=== PATIENT | female | born 1980 | race Caucasian/White ===

== ENCOUNTER → 2021-07-19 10:53 | Outpatient (CLI) | payer OTHER, MEDICAID, SELFPAY ==
[2021-07-21 11:25] LABS: Candida species Negative (Negative); Gardnerella vaginalis Negative (Negative); Trichomoas vaginalis Negative (Negative)
== END ==
PROVIDERS: PCP Physician Assistant Medical; Visit Provider Physician Assistant
DX: N76.0 Acute vaginitis (principal)
CPT/HCPCS: 81002; 87086; 87480; 87510; 87660

== ENCOUNTER → 2022-05-09 15:45 | Outpatient (CLI) | payer OTHER, MEDICAID, SELFPAY ==
[2022-05-15 17:11] LABS: Fecal Immunochemical Test Negative (Negative)
== END ==
PROVIDERS: PCP Physician Assistant; Referring Provider Physician Assistant; Visit Provider Physician Assistant
DX: R19.5 Other fecal abnormalities (principal)
CPT/HCPCS: 82274

== ENCOUNTER → 2022-05-11 11:59 | Outpatient (CLI) | payer OTHER, MEDICAID, SELFPAY ==
[2022-05-11 19:53] LABS: Add Manual Diff / Slide Review NO; Basophils Absolute Auto 0 /uL (0-100); Basophils Percent Auto 0.6 % (0-2); Eosinophils Absolute Auto 100 /uL (0-450); Hemoglobin 13.3 g/dL (12.0-16.0); Lymphocytes Absolute Auto 1900 /uL (1100-4500); Lymphocytes Percent Auto 30.2 % (25-40); Mean Corpuscular HGB Conc 34.1 % (30-36); Mean Corpuscular Hemoglobin 30.5 PG (26-34); Mean Corpuscular Volume 89.4 fL (80-100); Monocytes Absolute Auto 300 /uL (0-900); Monocytes Percent Auto 5.2 % (3-14); Neutrophils Absolute Auto 3800 /uL (1500-7000); Platelet Count 195 X10^3/uL (150-400); Red Blood Cell Count 4.37 X10^6/uL (4.0-5.2); Red Cell Distribution Width 13.1 % (11.6-14.8); White Blood Cell Count 6.2 X10^3/uL (4.5-11.0)
[2022-05-11 20:03] LABS: Alanine Aminotransferase 17 IU/L (<35); Albumin 4.3 g/dL (3.5-5.0); Albumin Globulin Ratio 1.6 (1.0-2.8); Alkaline Phosphatase 44 U/L (38-126); Aspartate Aminotransferase 21 IU/L (14-36); BUN Creatinine Ratio 24.2 (6-22); Bilirubin Total 0.5 mg/dL (0.2-1.3); Blood Urea Nitrogen 15 mg/dL (7-17); Calcium 9.2 mg/dL (8.4-10.2); Carbon Dioxide 27 mmol/L (22-32); Chloride 102 mmol/L (98-107); Estimated Glomerular Filt Rate > 60 mL/min (>60); Globulin 2.7 g/dL (1.7-4.1); Glucose 111 mg/dL (70-100); HEMOLYSIS < 15 (0-50); Potassium 3.9 mmol/L (3.4-5.1); Sodium 138 mmol/L (137-145)
[2022-05-11 20:26] LABS: Hemoglobin A1C% w Est Avg Glu 5.2 % (4.0-6.0)
[2022-05-11 20:47] LABS: Vitamin B12 379 pg/mL (239-931)
== END ==
PROVIDERS: PCP Physician Assistant; Visit Provider Family Medicine
DX: G62.9 Polyneuropathy, unspecified (principal)
CPT/HCPCS: 80053; 82607; 83036; 85025

== ENCOUNTER → 2022-07-12 11:00 | Outpatient (CLI) | payer OTHER, MEDICAID, SELFPAY | PROVIDERS: PCP Physician Assistant; Visit Provider Physician Assistant | DX: N89.8 Other specified noninflammatory disorders of vagina (principal); Z11.3 Encounter for screening for infections with a predominantly sexual mode of transmission | CPT/HCPCS: 87491; 87591; 87661; 87798; 87801 ==

== ENCOUNTER → 2022-08-16 15:14 | Outpatient (CLI) | payer OTHER, MEDICAID, SELFPAY ==
[2022-08-16 23:08] LABS: Adenovirus F 40/41 Detected (Not Detect); Campylobacter Not Detected (Not Detect); Clostridium difficile toxin AB Not Detected (Not Detect); Cryptosporidium Not Detected (Not Detect); Cyclospora cayetanensis Not Detected (Not Detect); Entamoeba histolytica Not Detected (Not Detect); Enteroaggregative E.coli Not Detected (Not Detect); Enteropathogenic E.coli Not Detected (Not Detect); Enterotoxigenic E.coli It/st Not Detected (Not Detect); Giardia lamblia Not Detected (Not Detect); Plesiomonsa shigelloides Not Detected (Not Detect); Salmonella Not Detected (Not Detect); Shiga-like toxin-prod E.coli Not Detected (Not Detect); Shigella/Enteroinvasive E.coli Not Detected (Not Detect); Vibrio Not Detected (Not Detect); Vibrio cholerae Not Detected (Not Detect); Yersinia enterocolitica Not Detected (Not Detect)
[2022-08-16 23:09] LABS: Astrovirus Not Detected (Not Detect); Norovirus GI/GII Not Detected (Not Detect); Rotavirus A Not Detected (Not Detect); Sapovirus Not Detected (Not Detect)
== END ==
PROVIDERS: PCP Physician Assistant; Visit Provider Physician Assistant
DX: R19.5 Other fecal abnormalities (principal)
CPT/HCPCS: 87507

== ENCOUNTER → 2022-08-23 14:10 | Outpatient (CLI) | payer OTHER, MEDICAID, SELFPAY ==
[2022-08-27 17:00] LABS: Fecal Immunochemical Test Negative (Negative)
[2022-08-28 12:36] LABS: Calprotectin, Stool 20 ug/g (0-120)
[2022-08-31 07:09] LABS: Lactoferrin, Fecal Quant <1.00 ug/mL(g) (0.00-7.24)
== END ==
PROVIDERS: PCP Physician Assistant; Visit Provider Physician Assistant
DX: R19.5 Other fecal abnormalities (principal)
CPT/HCPCS: 82274; 83631; 83993; 87177

== ENCOUNTER → 2022-08-30 08:15 | Outpatient (CLI) | payer OTHER, MEDICAID, SELFPAY ==
[2022-08-30 20:14] LABS: Cholesterol 161 mg/dL (140-199); HDL Cholesterol 58 mg/dL (40-60); LDL Cholesterol Calculated 89 mg/dL (<100); Triglycerides 71 mg/dL (35-150)
[2022-09-01 21:04] LABS: Deamidated Gliadin Ab IgA 3 units (0-19); Deamidated Gliadin Ab IgG 2 units (0-19); Immunoglobulin A,Qn 272 mg/dL (87-352); t-Transglutaminase IgA <2 U/mL (0-3)
[2022-09-03 14:01] LABS: Interpretation Negative (Negative)
== END ==
PROVIDERS: PCP Physician Assistant; Visit Provider Physician Assistant
DX: R19.5 Other fecal abnormalities (principal)
CPT/HCPCS: 80061; 82784; 83013; 83516

== ENCOUNTER → 2022-10-15 12:37 | Outpatient (CLI) | payer OTHER, MEDICAID, SELFPAY ==
--- NOTE | 2022-10-15 12:38 | DI.MG.S_ITS ---
BILATERAL DIGITAL SCREENING MAMMOGRAM 3D/2D WITH CAD: 10/15/2022 CLINICAL: Baseline exam. Routine screening. No prior exams were available for comparison. Both breasts are extremely dense, which lowers the sensitivity of mammography (category d />75% glandular tissue). Current study was also evaluated with a Computer Aided Detection (CAD) system. No significant masses, calcifications, or other findings are seen in either breast. IMPRESSION: NEGATIVE There is no mammographic evidence of malignancy. A 1 year screening mammogram is recommended. Based on Tyrer-Cuzick model (a risk assessment model), the patient's lifetime risk is 22.0% and her 10 year risk is 4.0%. If a patient has an elevated risk, a more comprehensive evaluation should be considered and/or a referral to a genetic counselor. The [place] [employer], [employer], and NCCN Guidelines advise the consideration of Breast MRI as an adjunct to screening mammography in patients whose Lifetime risk to develop breast cancer is 20% or higher. This exam was interpreted at Station ID: [id number]. NOTE: For mammograms, a report in lay terms will be sent to the patient. Approximately 15% of breast malignancies will not be visualized mammographically. In the management of a palpable breast mass, a negative mammogram must not discourage biopsy of a clinically suspicious lesion. Electronically Signed By: Tisha johnson/brodie:10/15/2022 15:41:42 letter sent: Normal Exam ACR BI-RADS Category 1: Negative [id number]
== END ==
PROVIDERS: Family Provider Physician Assistant; PCP Physician Assistant; Referring Provider Physician Assistant; Visit Provider Physician Assistant
DX: Z12.31 Encounter for screening mammogram for malignant neoplasm of breast (principal)
CPT/HCPCS: 77063; 77067

== ENCOUNTER 2023-01-17 10:30 | Outpatient (RCR) | payer OTHER, SELFPAY ==
--- NOTE | 2022-11-08 19:06 | PT.OIE ---
Current Diagnoses Separation of muscle (nontraumatic), unspecified site (11/08/22) Muscle weakness (generalized) (11/08/22) Other specified disorders of muscle (11/08/22) Fecal urgency (11/08/22) Past Medical History (Last Updated 10/23/22 @ 18:00 by Priscilla Bang PA-C) Abnormal Pap smear of cervix Acute vaginitis Arthritis of left knee ASCUS with positive high risk HPV cervical (~01/18/20) Atypical nevi Candidiasis of genitalia Cellulitis of right middle finger Chest tightness Chronic maxillary sinusitis Costochondritis, acute Cough Crepitus of joint of right knee Enterobiasis Face lesion Health maintenance examination Keratosis pilaris LGSIL Pap smear of vagina Mastitis, left, acute Neoplasm of unspecified behavior of bone, soft tissue, and skin Other viral warts Popping of left temporomandibular joint on opening of jaw Pyogenic granuloma Screen for STD (sexually transmitted disease) Screening for breast cancer Screening for cervical cancer Screening for colon cancer Screening for HPV (human papillomavirus) Skin sensation disturbance Soft corn Vaginal delivery Vaginal discharge Well woman exam Past Surgical History (Last Updated 01/14/20 @ 13:51 by Evette Hunter MD) H/O colposcopy with cervical biopsy Visit Care Team Role Provider Type Jaja Dixon MD Family Provider Physician Specialty: Gynecology ENGINEERING MANAGER Obstetrics Address: [address] [place] [address], [id number] Email: [email or web address] Sophia Willams PA-C Attending Provider [employer] Primary Care Provider Referring Provider Specialty: Medical Address: [address] [place] [address], [id number] Email: [email or web address] Physical Therapy Initial Evaluation PT-OP-A Visit Information Start: 11/06/22 19:22 Freq: Status: Active Protocol: Document 11/08/22 11:25 LRN (Rec: 11/08/22 12:23 LRN [id number]) Out-Patient Physical Therapy Visit Information Visit Information Visit Type Initial Evaluation Visit Start Time 11:25 Visit Stop Time 12:17 Total Visit Minutes 52 Visit Number 06/01 Evaluation Information Evaluation Date 11/08/22 Precautions Precautions Episiotomy was during 2017 childbirth in same area as cyst removal in 2002. Recent onset of R neck/upper back/ shoulder pain, history back pain PT-OP-B Current Condition Start: 11/06/22 19:22 Freq: Status: Active Protocol: Document 11/08/22 11:25 LRN (Rec: 11/08/22 12:23 LRN [id number]) Current Condition History of Current Condition Onset Date 11/2017 Current Complaints Bulging in PF with pushing and bowel movements. History of Current Condition Pt lives on [facility]. Pt states the PF feels out of place and feels like it is bulging when having bowel movement or lifting something heavy since after her 2nd childbirth. Seeing Job Order Clerk for her BM problems and will have a colonoscopy 11/12/22. Developmental History Developmental History Two childbirths: 07/2015 and births with episotomy on 2nd . Vaginal delivery. First had 6 hrs of pushing. 2nd had episotomy due to baby heart rate going down. Ob Scrub Tech did her first episotomy at that time. Has been doing PT a few weeks on [facility], up until 2.5 weeks ago, for R shoulder/neck /arm pain, but reinjured it a few days ago. Treatment Goals Patient/Caregiver Goals Pt goal is to not want to feel the bulging or worsening of bulging with bowel movements, and eliminate BM issues as much as she can. Personal Factors Other Personal Factors That May Effect Pt lives on [facility] and Therapy/Recovery is financially hindered in therapy visits. Recent onset of R neck/upper back/shoulder pain, history back pain, episiotomy 07/19/2017, cyst removed in same location of episiotomy 2002. PT-OP-C Subjective Start: 11/06/22 19:22 Freq: Status: Active Protocol: Document 11/08/22 11:25 LRN (Rec: 11/08/22 12:23 LRN [id number]) Patient Questionnaires Pelvic Pain and Urgency/Frequency Patient Symptom Scale Pelvic Pain Score 4 PT-OP-I Pelvic Floor Start: 11/06/22 19:22 Freq: Status: Active Protocol: Document 11/08/22 11:25 LRN (Rec: 11/08/22 12:23 LRN [id number]) Pelvic Floor Assessment Bowel Bowel Surgery No Bowel Symptoms Constipation Other Bowel Symptoms Soft stool problem in the past 8 months, difficulty passing stool for years having to use warm water in anal area. Now soft stool discomfort passing and more frequent (3 times at night). Starting with the 1st had problems pushing the stool out, but it wasn't hard stool. Bowel Movement Frequency Several at nighttime Pelvic Clock Pelvic Clock Other Appears to have loose tissue in region of rectum. Prolapse Cystocele Grade 2 SEMG (uV) Baseline 3.1 Quick Contraction 6.7 10 Second Contraction 7.4 Recruitment Pattern Good Relaxation Fair Holding Fair Stability of Hold Fair SEMG Stability of Rest Fair Contraction Ability Voluntary Contraction Moderate Manual Muscle Testing Left 0 Manual Muscle Testing Right 0 Manual Muscle Testing Anterior 3 Manual Muscle Testing Posterior 3 Muscle Endurance (Seconds) 5 Number of Quick Contractions In 10 10 Seconds PT-OP-J Posture/Palpation/Skin Start: 11/06/22 19:22 Freq: Status: Active Protocol: Document 11/08/22 11:25 LRN (Rec: 11/08/22 18:14 LRN [id number]) Posture Evaluation Position Standing T-Spine Posture Flattened L-Spine Posture Increased Lordosis Pelvis Posture Anteriorly Tilted Weight Distribution Balanced Palpation Assessment Location Abdomen-DR Palpation Location Abdomen - DR Palpation Details Above umbilicus: 1-2 above is 1.5 finger widths, 3-4 above is 2.25 finger widths Below umibilicus: 1-2: below is 1.5 finger widths. PT-OP-K Range of Motion Start: 11/06/22 19:22 Freq: Status: Active Protocol: Document 11/08/22 11:25 LRN (Rec: 11/08/22 18:14 LRN [id number]) Lumbar Spine Range of Motion Lumbar Spine Active Degrees Testing Position Standing Flexion 100 Extension 20 Rotation Left 45 Rotation Right 40 Lateral Flexion Left 12 Lateral Flexion Right 12 Hip Goniometric Range of Motion Hip Right Passive Testing Position Supine Internal Rotation 40 External Rotation 75 Left Passive Internal Rotation 35 External Rotation 75 PT-OP-M Strength Start: 11/06/22 19:22 Freq: Status: Active Protocol: Document 11/08/22 11:25 LRN (Rec: 11/08/22 18:14 LRN [id number]) Trunk Strength Trunk Manual Muscle Testing Core Stabilization Pt is not able to maintain core stability with MMT of hip . Hip Strength Hip Manual Muscle Testing Right Flexion (L2) 5 Normal Extension (S1) 5 Normal Abduction 5 Normal Adduction 5 Normal Left Flexion (L2) 5 Normal Extension (S1) 5 Normal Abduction 5 Normal Adduction 5 Normal PT-OP-Q Treatments Start: 11/06/22 19:22 Freq: Status: Active Protocol: Document 11/08/22 11:25 LRN (Rec: 11/08/22 12:23 LRN [id number]) Self-Care/Home Management Treatment Education Patient Education Home Exercise Program Other Education Discussed results of evaluation, goals, and plan of care (POC). Pt agreeable to goals and POC. Pt educated in use of Bladder Diary and I/S in tracking for 1 week. Discussed use of 2 different diaries for tracking of bladder. Activities Self-Care/Home Management Activities Issued & reviewed HEP: Guillermo ex's and discussed exercise of Quick Flicks, Long Holds. PT-OP-T Assessment and Plan Start: 11/06/22 19:22 Freq: Status: Active Protocol: Document 11/08/22 11:25 LRN (Rec: 11/08/22 12:23 LRN [id number]) Physical Therapy Assessment Rehab Potential Rehabilitation Potential Good Evaluation Complexity Number of Personal Factors/Comorbidities 0 Impairments Impairments Activity Tolerance Goals Three Impairment Poor core stability Impairment Not able to maintain core stability with MMT of LE's and poor abdominal care of Short Term Goal (STG) Pt will be educated in deep core strengthening (TA & obliques) with coordination of proper breath work and improve posture or able to correct increased lordosis on command. STG Duration 01/07/23 Snf Goal (LTG) Pt will be able to demonstrate a stable core with MMT of hip . LTG Duration 03/08/23 Two Impairment Bulge feeling in PF Impairment PF Bulge with squat and bowel movements (BMs). Short Term Goal (STG) Pt will understand the role of constipation & intra abdominal pressure changes with transfers/ADLS and body mechanics. STG Duration 01/07/23 Steam And Power Supervisor Goal (LTG) Pt will note reduced bulging or worsening of bulging with bowel movements and squatting. LTG Duration 03/08/23 One Impairment Pt lacks appropriate self care HEP Short Term Goal (STG) Pt will be placed on a self longterm program to progress towards elimination or decrease BM frequency issues ( self abdominal massage). STG Duration 01/07/23 Steam And Power Supervisor Goal (LTG) Pt will be able to manage symptoms (lower abdominal pain and PF bulge) with an independent HEP of PF strengthening ex's to include core & hip ROM and strengthening. LTG Duration 03/08/23 Assessment Summary Assessment The pt is a 42 yo female who presents with PF pain of lower abdominal discomfort and bowel dysfunction of increased frequency. She has mostly a normal resting tone, some weakness with quick and long hold contractions with most of the weakness in the lateral payne. The pt appeared to have increased palpable tissue in the 6 O'clock region of the PF clock, that might indicate she has a possible rectocele, although not visibly present today. The pt has a palpable Diastasis Rectus that appears to be limiting her core stability and also a ectomorphic body type with abdominal soft tissue tightness that may be restricting proper bowel function. The pt would benefit from multiple manual skilled physical therapy treatments as well as treatment focusing on pt education, strengthening, mobility exercises and HEP, to work towards achieving the above stated goals, but because of her reported insurance limits and difficulty attending therapy from [facility], it was agreed to primarily treat the patient with infrequent visits with as few treatments as possible and more focus on self care. The pt is expected to progress slowly on this type of program. Physical Therapy Plan Frequency and Duration Frequency of Treatment Occasional Plan of Care Start Date 11/08/22 Plan of Care End Date 03/08/23 Therapeutic Interventions Therapeutic Interventions Home Exercise Program,Joint Mobilizations,Manual Therapy, Neuromuscular Re-education, Patient/Caregiver Education, Self-Care/Home Management,Soft Tissue Mobilization,Taping, Therapeutic Activities, Therapeutic Exercises Modalities Biofeedback,Cold Pack/Ice Massage,Electric Stimulation, Hot Packs Next Visit Focus/Plan Next Note Type Treatment Note Next Visit Plan Up to 6 visits for PF/bowel care rehabilitation. Review bladder diary and make recommendations to fluid/food intake. Education in core/canister pressures and strategies to decrease PF pressures with coughing, and discuss use of squatty potty and self care methods for having BM's without valsa maneuver. Education in PF strengthening with ADLS/transfers. Exer: Kegels in abscence of substitute muscles, Fig 4 stretches, hamstring/LE neural stretch, trunk rot & R SB stretch. Strengthening of core & hip L AB & veda IR. Biofeedback when pt able to perform a contraction Quick Flick and Long Hold muscles. PF Education, massage, mobility ex?s, stabilization ex?s.
--- NOTE | 2022-11-08 19:07 | PT.OPPOC ---
Physical, Occupational & Speech Therapy At [facility] Current Diagnoses Separation of muscle (nontraumatic), unspecified site (11/08/22) Muscle weakness (generalized) (11/08/22) Other specified disorders of muscle (11/08/22) Fecal urgency (11/08/22) Visit Care Team Role Provider Type Jaja Dixon MD Family Provider Physician Specialty: Gynecology JEWEL HOLE FINISH OPENER Obstetrics Address: [address] [place] [address], [id number] Email: [email or web address] Sophia Willams PA-C Attending Provider Advanced Art Glass Setter Primary Care Provider Referring Provider Specialty: Medical Address: [address] [place] [address], [address] Email: [email or web address] Plan Of Care PT-OP-T Assessment and Plan Start: 11/06/22 19:22 Freq: Status: Active Protocol: Document 11/08/22 11:25 LRN (Rec: 11/08/22 12:23 LRN [id number]) Physical Therapy Assessment Rehab Potential Rehabilitation Potential Good Evaluation Complexity Number of Personal Factors/Comorbidities 0 Impairments Impairments Activity Tolerance Goals Three Impairment Poor core stability Impairment Not able to maintain core stability with MMT of LE's and poor abdominal care of Short Term Goal (STG) Pt will be educated in deep core strengthening (TA & obliques) with coordination of proper breath work and improve posture or able to correct increased lordosis on command. STG Duration 01/07/23 Longterm Goal (LTG) Pt will be able to demonstrate a stable core with MMT of hip . LTG Duration 03/08/23 Two Impairment Bulge feeling in PF Impairment PF Bulge with squat and bowel movements (BMs). Short Term Goal (STG) Pt will understand the role of constipation & intra abdominal pressure changes with transfers/ADLS and body mechanics. STG Duration 01/07/23 Longterm Goal (LTG) Pt will note reduced bulging or worsening of bulging with bowel movements and squatting. LTG Duration 03/08/23 One Impairment Pt lacks appropriate self care HEP Short Term Goal (STG) Pt will be placed on a self prison program to progress towards elimination or decrease BM frequency issues ( self abdominal massage). STG Duration 01/07/23 Longterm Goal (LTG) Pt will be able to manage symptoms (lower abdominal pain and PF bulge) with an independent HEP of PF strengthening ex's to include core & hip ROM and strengthening. LTG Duration 03/08/23 Assessment Summary Assessment The pt is a 42 yo female who presents with PF pain of lower abdominal discomfort and bowel dysfunction of increased frequency. She has mostly a normal resting tone, some weakness with quick and long hold contractions with most of the weakness in the lateral payne. The pt appeared to have increased palpable tissue in the 6 O'clock region of the PF clock, that might indicate she has a possible rectocele, although not visibly present today. The pt has a palpable Diastasis Rectus that appears to be limiting her core stability and also a ectomorphic body type with abdominal soft tissue tightness that may be restricting proper bowel function. The pt would benefit from multiple manual skilled physical therapy treatments as well as treatment focusing on pt education, strengthening, mobility exercises and HEP, to work towards achieving the above stated goals, but because of her reported insurance limits and difficulty attending therapy from [facility], it was agreed to primarily treat the patient with infrequent visits with as few treatments as possible and more focus on self care. The pt is expected to progress slowly on this type of program. Physical Therapy Plan Frequency and Duration Frequency of Treatment Occasional Plan of Care Start Date 11/08/22 Plan of Care End Date 03/08/23 Therapeutic Interventions Therapeutic Interventions Home Exercise Program,Joint Mobilizations,Manual Therapy, Neuromuscular Re-education, Patient/Caregiver Education, Self-Care/Home Management,Soft Tissue Mobilization,Taping, Therapeutic Activities, Therapeutic Exercises Modalities Biofeedback,Cold Pack/Ice Massage,Electric Stimulation, Hot Packs Next Visit Focus/Plan Next Note Type Treatment Note Next Visit Plan Up to 6 visits for PF/bowel care rehabilitation. Review bladder diary and make recommendations to fluid/food intake. Education in core/canister pressures and strategies to decrease PF pressures with coughing, and discuss use of squatty potty and self care methods for having BM's without valsa maneuver. Education in PF strengthening with ADLS/transfers. Exer: Kegels in abscence of substitute muscles, Fig 4 stretches, hamstring/LE neural stretch, trunk rot & R SB stretch. Strengthening of core & hip L AB & veda IR. Biofeedback when pt able to perform a contraction Quick Flick and Long Hold muscles. PF Education, massage, mobility ex?s, stabilization ex?s. Plan of Care Dates Plan of Care Start Date 11/08/22 Plan of Care End Date 03/08/23 Electronically Signed by: Tisha Escalante, PT 11/08/22 0234 If you are in agreement with this Plan of Care, please return a signed and dated copy. I have reviewed this Plan of Care and certify that the skilled therapy services above are required to meet the patient?s needs. Physician Signature Date Printed Name and Credentials Clinical Instructor Signature Printed Name and Credentials
--- NOTE | 2022-12-18 17:01 | PT.OTN ---
Current Diagnoses Separation of muscle (nontraumatic), unspecified site (12/18/22) Muscle weakness (generalized) (12/18/22) Other specified disorders of muscle (12/18/22) Fecal urgency (12/18/22) Physical Therapy Treatment Note PT-OP-A Visit Information Start: 11/06/22 19:22 Freq: Status: Active Protocol: Document 12/18/22 13:18 LRN (Rec: 12/18/22 14:05 LRN [id number]) Out-Patient Physical Therapy Visit Information Visit Information Visit Type Treatment Note Visit Start Time 13:18 Visit Stop Time 14:03 Total Visit Minutes 45 Visit Number 07/08 Evaluation Information Evaluation Date 11/08/22 Precautions Precautions Episiotomy was during 2017 childbirth in same area as cyst removal in 2002. Recent onset of R neck/upper back/ shoulder pain, history back pain PT-OP-B Current Condition Start: 11/06/22 19:22 Freq: Status: Active Protocol: Document 11/08/22 11:25 LRN (Rec: 11/08/22 12:23 LRN [id number]) Current Condition History of Current Condition Onset Date 11/2017 Current Complaints Bulging in PF with pushing and bowel movements. History of Current Condition Pt lives on [facility]. Pt states the PF feels out of place and feels like it is bulging when having bowel movement or lifting something heavy since after her 2nd childbirth. Seeing Mediator for her BM problems and will have a colonoscopy 11/12/22. Developmental History Developmental History Two childbirths: 07/2015 and births with episotomy on 2nd . Vaginal delivery. First had 6 hrs of pushing. 2nd had episotomy due to baby heart rate going down. Assistant Store Manager Operations did her first episotomy at that time. Has been doing PT a few weeks on [facility], up until 2.5 weeks ago, for R shoulder/neck /arm pain, but reinjured it a few days ago. Treatment Goals Patient/Caregiver Goals Pt goal is to not want to feel the bulging or worsening of bulging with bowel movements, and eliminate BM issues as much as she can. Personal Factors Other Personal Factors That May Effect Pt lives on [facility] and Therapy/Recovery is financially hindered in therapy visits. Recent onset of R neck/upper back/shoulder pain, history back pain, episiotomy 07/19/2017, cyst removed in same location of episiotomy 2002. PT-OP-C Subjective Start: 11/06/22 19:22 Freq: Status: Active Protocol: Document 12/18/22 13:18 LRN (Rec: 12/18/22 14:05 LRN [id number]) OP-PT Subjective Patient Comments Patient Comments Bowels, type 4. Saw GI specialist 2x via internet. Had colonoscopy that didn't show anything. Was told to talk to PT to help her relax and release stool better. PT-OP-I Pelvic Floor Start: 11/06/22 19:22 Freq: Status: Active Protocol: Document 11/08/22 11:25 LRN (Rec: 11/08/22 12:23 LRN [id number]) Pelvic Floor Assessment Bowel Bowel Surgery No Bowel Symptoms Constipation Other Bowel Symptoms Soft stool problem in the past 8 months, difficulty passing stool for years having to use warm water in anal area. Now soft stool discomfort passing and more frequent (3 times at night). Starting with the 1st had problems pushing the stool out, but it wasn't hard stool. Bowel Movement Frequency Several at nighttime Pelvic Clock Pelvic Clock Other Appears to have loose tissue in region of rectum. Prolapse Cystocele Grade 2 SEMG (uV) Baseline 3.1 Quick Contraction 6.7 10 Second Contraction 7.4 Recruitment Pattern Good Relaxation Fair Holding Fair Stability of Hold Fair SEMG Stability of Rest Fair Contraction Ability Voluntary Contraction Moderate Manual Muscle Testing Left 0 Manual Muscle Testing Right 0 Manual Muscle Testing Anterior 3 Manual Muscle Testing Posterior 3 Muscle Endurance (Seconds) 5 Number of Quick Contractions In 10 10 Seconds PT-OP-J Posture/Palpation/Skin Start: 11/06/22 19:22 Freq: Status: Active Protocol: Document 11/08/22 11:25 LRN (Rec: 11/08/22 18:14 LRN [id number]) Posture Evaluation Position Standing T-Spine Posture Flattened L-Spine Posture Increased Lordosis Pelvis Posture Anteriorly Tilted Weight Distribution Balanced Palpation Assessment Location Abdomen-DR Palpation Location Abdomen - DR Palpation Details Above umbilicus: 1-2 above is 1.5 finger widths, 3-4 above is 2.25 finger widths Below umibilicus: 1-2: below is 1.5 finger widths. PT-OP-K Range of Motion Start: 11/06/22 19:22 Freq: Status: Active Protocol: Document 11/08/22 11:25 LRN (Rec: 11/08/22 18:14 LRN [id number]) Lumbar Spine Range of Motion Lumbar Spine Active Degrees Testing Position Standing Flexion 100 Extension 20 Rotation Left 45 Rotation Right 40 Lateral Flexion Left 12 Lateral Flexion Right 12 Hip Goniometric Range of Motion Hip Right Passive Testing Position Supine Internal Rotation 40 External Rotation 75 Left Passive Internal Rotation 35 External Rotation 75 PT-OP-M Strength Start: 11/06/22 19:22 Freq: Status: Active Protocol: Document 11/08/22 11:25 LRN (Rec: 11/08/22 18:14 LRN [id number]) Trunk Strength Trunk Manual Muscle Testing Core Stabilization Pt is not able to maintain core stability with MMT of hip . Hip Strength Hip Manual Muscle Testing Right Flexion (L2) 5 Normal Extension (S1) 5 Normal Abduction 5 Normal Adduction 5 Normal Left Flexion (L2) 5 Normal Extension (S1) 5 Normal Abduction 5 Normal Adduction 5 Normal PT-OP-Q Treatments Start: 11/06/22 19:22 Freq: Status: Active Protocol: Document 12/18/22 13:18 LRN (Rec: 12/18/22 16:34 LRN [id number]) Therapeutic Exercises Supine Exercises Happy Baby Pose Supine Exercise Name Happy Baby Pose Reps/Minutes 3' Deep Breathing Supine Exercise Name Diaphragmatic Breathing Reps/Minutes 5' Sitting Exercises BM training w/squatty potty positioning Sitting Exercise Name BM training: Squatty Potty positioning w/deep breathing. Reps/Minutes 8' Comments Much phys & v cuing for deep breathing vs chest breathing Bowel Massage review Sitting Exercise Name Bowel Massage Review Reps/Minutes 3' Self-Care/Home Management Treatment Education Patient Education Home Exercise Program Other Education Educated and discussed at length Bowel Program, with handout issued. Review bladder diary and discussed at length fluid management and different fluid types; food management with recommendation of increased food content and of vegs, fruits, and fiber foods. Educated and discussed Bowel stim massage with verbal review. Educated and discussed use of Squatty Potty. Activities Self-Care/Home Management Activities Issued & reviewed HEP: Happy Baby Pose & Diaphragmatic Breathing. PT-OP-T Assessment and Plan Start: 11/06/22 19:22 Freq: Status: Active Protocol: Document 12/18/22 13:18 LRN (Rec: 12/18/22 14:05 LRN [id number]) Physical Therapy Assessment Goals Three Impairment Poor core stability Impairment Not able to maintain core stability with MMT of LE's and poor abdominal care of DRSameer Short Term Goal (STG) Pt will be educated in deep core strengthening (TA & obliques) with coordination of proper breath work and improve posture or able to correct increased lordosis on command. STG Duration 01/07/23 Senior Staff Psychologist Goal (LTG) Pt will be able to demonstrate a stable core with MMT of hip . LTG Duration 03/08/23 Two Impairment Bulge feeling in PF Impairment PF Bulge with squat and bowel movements (BMs). Short Term Goal (STG) Pt will understand the role of constipation & intra abdominal pressure changes with transfers/ADLS and body mechanics. 12/18/22: Discussed fluid/ food diet to improve pt understanding of role of constipation has on BM's. STG Duration 01/07/23 progressed 12/18/22 Usp Goal (LTG) Pt will note reduced bulging or worsening of bulging with bowel movements and squatting. LTG Duration 03/08/23 One Impairment Pt lacks appropriate self care HEP Short Term Goal (STG) Pt will be placed on a self longterm program to progress towards elimination or decrease BM frequency issues ( self abdominal massage). 12/18/22: HEP: Bowel massage, BM training coordinating w/ deep breathing and best positioning (squatty potty), Happy Baby Pose. STG Duration 01/07/23 progressed 12/18/22 Usp Goal (LTG) Pt will be able to manage symptoms (lower abdominal pain and PF bulge) with an independent HEP of PF strengthening ex's to include core & hip ROM and strengthening. LTG Duration 03/08/23 Assessment Summary Assessment Pt did not complete full day bladder diary for full 7 days due to report of time constraint; therefore comprehensive recommendations for change in fluid/food diet was very difficult to provide. She appears to have BM's 3-4 times per day and 1-2 times per night. She is urinating every 2 hrs. Pt primary complaint is with small BM's throughout 24 hours. It appears that caffeine (coffee) is stimulant for having a BM and she lacks vegs, fruit, fiber/bulk in her diet. She drinks a good amount of fluid based on her food intake but does not drink 1/2 body wgt in ounces. Pt primarily concerned of being able to void more quickly. Change in positioning and use of deep breathing may be helpful. GI transit time will be assessed by use of eating beets. Physical Therapy Plan Frequency and Duration Frequency of Treatment Occasional Plan of Care Start Date 11/08/22 Plan of Care End Date 03/08/23 Next Visit Focus/Plan Next Note Type Treatment Note Next Visit Plan Up to 12 visits for PF/bowel care rehabilitation. Review GI transit time, review issued self care activities as needed, and assess response to use of squatty potty positioning to improve BM ease . Discuss having BM's without valsa maneuver. Educate pt in core/canister pressures and strategies to decrease PF pressures with coughing. Education in PF strengthening with ADLS/transfers. Exer: Justino in abscence of substitute muscles, Fig 4 stretches, hamstring/LE neural stretch, trunk rot & R SB stretch. Strengthening of core & hip L AB & veda IR. Biofeedback when pt able to perform a contraction Quick Flick and Long Hold muscles. POC: PF Education, massage, mobility ex?s, stabilization ex?s.
--- NOTE | 2023-01-17 16:30 | PT.OTN ---
Current Diagnoses Separation of muscle (nontraumatic), unspecified site (01/17/23) Muscle weakness (generalized) (01/17/23) Other specified disorders of muscle (01/17/23) Fecal urgency (01/17/23) Physical Therapy Treatment Note PT-OP-A Visit Information Start: 11/06/22 19:22 Freq: Status: Active Protocol: Document 01/17/23 10:34 LRN (Rec: 01/17/23 11:16 LRN [id number]) Out-Patient Physical Therapy Visit Information Visit Information Visit Type Treatment Note Visit Start Time 10:34 Visit Stop Time 11:14 Total Visit Minutes 40 Visit Number 3/ Evaluation Information Evaluation Date 11/08/22 Precautions Precautions Episiotomy was during 2017 childbirth in same area as cyst removal in 2002. Recent onset of R neck/upper back/ shoulder pain, history back pain PT-OP-B Current Condition Start: 11/06/22 19:22 Freq: Status: Active Protocol: Document 11/08/22 11:25 LRN (Rec: 11/08/22 12:23 LRN [id number]) Current Condition History of Current Condition Onset Date 11/2017 Current Complaints Bulging in PF with pushing and bowel movements. History of Current Condition Pt lives on [facility]. Pt states the PF feels out of place and feels like it is bulging when having bowel movement or lifting something heavy since after her 2nd childbirth. Seeing Educational Technology Coordinator for her BM problems and will have a colonoscopy 11/12/22. Developmental History Developmental History Two childbirths: 07/2015 and births with episotomy on 2nd . Vaginal delivery. First had 6 hrs of pushing. 2nd had episotomy due to baby heart rate going down. Double End Chucking Machine Operator did her first episotomy at that time. Has been doing PT a few weeks on [facility], up until 2.5 weeks ago, for R shoulder/neck /arm pain, but reinjured it a few days ago. Treatment Goals Patient/Caregiver Goals Pt goal is to not want to feel the bulging or worsening of bulging with bowel movements, and eliminate BM issues as much as she can. Personal Factors Other Personal Factors That May Effect Pt lives on [facility] and Therapy/Recovery is financially hindered in therapy visits. Recent onset of R neck/upper back/shoulder pain, history back pain, episiotomy 07/19/2017, cyst removed in same location of episiotomy 2002. PT-OP-C Subjective Start: 11/06/22 19:22 Freq: Status: Active Protocol: Document 01/17/23 10:34 LRN (Rec: 01/17/23 11:16 LRN [id number]) OP-PT Subjective Patient Comments Patient Comments Has been trying to eat more leafy greens and she felt like it didn't do anything for a couple of days, then went on vacation and then lost track. Tried putting self in squatty potty position, but was uneven, so didnt help. PT-OP-I Pelvic Floor Start: 11/06/22 19:22 Freq: Status: Active Protocol: Document 11/08/22 11:25 LRN (Rec: 11/08/22 12:23 LRN [id number]) Pelvic Floor Assessment Bowel Bowel Surgery No Bowel Symptoms Constipation Other Bowel Symptoms Soft stool problem in the past 8 months, difficulty passing stool for years having to use warm water in anal area. Now soft stool discomfort passing and more frequent (3 times at night). Starting with the 1st had problems pushing the stool out, but it wasn't hard stool. Bowel Movement Frequency Several at nighttime Pelvic Clock Pelvic Clock Other Appears to have loose tissue in region of rectum. Prolapse Cystocele Grade 2 SEMG (uV) Baseline 3.1 Quick Contraction 6.7 10 Second Contraction 7.4 Recruitment Pattern Good Relaxation Fair Holding Fair Stability of Hold Fair SEMG Stability of Rest Fair Contraction Ability Voluntary Contraction Moderate Manual Muscle Testing Left 0 Manual Muscle Testing Right 0 Manual Muscle Testing Anterior 3 Manual Muscle Testing Posterior 3 Muscle Endurance (Seconds) 5 Number of Quick Contractions In 10 10 Seconds PT-OP-J Posture/Palpation/Skin Start: 11/06/22 19:22 Freq: Status: Active Protocol: Document 11/08/22 11:25 LRN (Rec: 11/08/22 18:14 LRN [id number]) Posture Evaluation Position Standing T-Spine Posture Flattened L-Spine Posture Increased Lordosis Pelvis Posture Anteriorly Tilted Weight Distribution Balanced Palpation Assessment Location Abdomen-DR Palpation Location Abdomen - DR Palpation Details Above umbilicus: 1-2 above is 1.5 finger widths, 3-4 above is 2.25 finger widths Below umibilicus: 1-2: below is 1.5 finger widths. PT-OP-K Range of Motion Start: 11/06/22 19:22 Freq: Status: Active Protocol: Document 11/08/22 11:25 LRN (Rec: 11/08/22 18:14 LRN [id number]) Lumbar Spine Range of Motion Lumbar Spine Active Degrees Testing Position Standing Flexion 100 Extension 20 Rotation Left 45 Rotation Right 40 Lateral Flexion Left 12 Lateral Flexion Right 12 Hip Goniometric Range of Motion Hip Right Passive Testing Position Supine Internal Rotation 40 External Rotation 75 Left Passive Internal Rotation 35 External Rotation 75 PT-OP-M Strength Start: 11/06/22 19:22 Freq: Status: Active Protocol: Document 11/08/22 11:25 LRN (Rec: 11/08/22 18:14 LRN [id number]) Trunk Strength Trunk Manual Muscle Testing Core Stabilization Pt is not able to maintain core stability with MMT of hip . Hip Strength Hip Manual Muscle Testing Right Flexion (L2) 5 Normal Extension (S1) 5 Normal Abduction 5 Normal Adduction 5 Normal Left Flexion (L2) 5 Normal Extension (S1) 5 Normal Abduction 5 Normal Adduction 5 Normal PT-OP-Q Treatments Start: 11/06/22 19:22 Freq: Status: Active Protocol: Document 01/17/23 10:34 LRN (Rec: 01/17/23 11:16 LRN [id number]) Therapeutic Exercises Supine Exercises LE Roll in/out/PF/Breath Supine Exercise Name LE Roll in/out/PF/Breath Reps/Minutes 20' Comments Extensive training for coordination of breath w/PF >< 's during LE mvmts Deep Breathing Supine Exercise Name Diaphragmatic Breathing Reps/Minutes 5' Self-Care/Home Management Treatment Education Patient Education Home Exercise Program Other Education Reviewed recent bladder diary and discussed pt having more BM's, not doing BM massage. Discussed urinary frequency of every 3 hrs one day and and every 2 hrs next day. Activities Self-Care/Home Management Activities Pt to do LE roll in/out w/PF/ breathing, and ball squeeze/ exhale>breath x 1. Eat beets to determine GI transit time. Issued more bladder diary handouts. I/S pt to get squatty potty. PT-OP-T Assessment and Plan Start: 11/06/22 19:22 Freq: Status: Active Protocol: Document 01/17/23 10:34 LRN (Rec: 01/17/23 11:16 LRN [id number]) Physical Therapy Assessment Goals Three Impairment Poor core stability Impairment Not able to maintain core stability with MMT of LE's and poor abdominal care of DRSameer Short Term Goal (STG) Pt will be educated in deep core strengthening (TA & obliques) with coordination of proper breath work and improve posture or able to correct increased lordosis on command. STG Duration 01/07/23 Fci Goal (LTG) Pt will be able to demonstrate a stable core with MMT of hip . LTG Duration 03/08/23 Two Impairment Bulge feeling in PF Impairment PF Bulge with squat and bowel movements (BMs). Short Term Goal (STG) Pt will understand the role of constipation & intra abdominal pressure changes with transfers/ADLS and body mechanics. 12/18/22: Discussed fluid/ food diet to improve pt understanding of role of constipation has on BM's. STG Duration 01/07/23 progressed 12/18/22 (educ in core pressure changes w/trans...) [facility]ci Goal (LTG) Pt will note reduced bulging or worsening of bulging with bowel movements and squatting. LTG Duration 03/08/23 One Impairment Pt lacks appropriate self care HEP Short Term Goal (STG) Pt will be placed on a self residential program to progress towards elimination or decrease BM frequency issues ( self abdominal massage). 12/18/22: HEP: Bowel massage, BM training coordinating w/ deep breathing and best positioning (squatty potty), Happy Baby Pose. STG Duration 01/07/23 progressed 12/18/22 Clothing And Textiles Teacher Goal (LTG) Pt will be able to manage symptoms (lower abdominal pain and PF bulge) with an independent HEP of PF strengthening ex's to include core & hip ROM and strengthening. LTG Duration 03/08/23 Assessment Summary Assessment Pt is female who presents with PF pain of lower abdominal discomfort and bowel dysfunction of increased frequency, urinary freq mostly normal. Pt was not able to determine bowel transit time and will try again, eating more beets. Pt appears to need squatty potty to see if it can be helpful with voiding without valsa maneuver. Pt trying to be more consistent with self care but notes difficulty with having children in being able to sit and calmly void over time. Progress is slow due to pt busy schedule at home hindering her ability to be consistent with self care instructions. Physical Therapy Plan Frequency and Duration Frequency of Treatment Occasional Plan of Care Start Date 11/08/22 Plan of Care End Date 03/08/23 Next Visit Focus/Plan Next Note Type Treatment Note Next Visit Plan Up to 12 visits for PF/bowel care rehabilitation. Review bladder diary and compare to initial if pt brings in. Review GI transit time, review issued self care activities as needed, and assess response to use of squatty potty positioning to improve BM ease . Educated/discuss having BM's without valsa maneuver. Educate pt in core/canister pressures and strategies to decrease PF pressures with coughing. Education in PF strengthening with ADLS/transfers. Exer: Kegels in abscence of substitute muscles, Fig 4 stretches, hamstring/LE neural stretch, trunk rot & R SB stretch. Strengthening of core & hip L AB & veda IR. Biofeedback when pt able to perform a contraction Quick Flick and Long Hold muscles. POC: PF Education, massage, mobility ex?s, stabilization ex?s.
--- NOTE | 2023-03-15 15:00 | PT-OP ANOTE ---
Per phone conversation pt has more immediate concerns regarding bowel dysfunction and if her other physician would agree to sending a referral to PT, then she will DC from her current PT and begin therapy for bowel dysfunction. Pt will call the bowel referring physician and will decide on if she will continue PT at for PF dysfunction, or another place for bowel dysfunction. Will wait to hear from pt on whether to DC from PT or continue.
--- NOTE | 2023-03-15 15:56 | PT-OP ANOTE ---
Per phone pt notified that her POC for the current referral has ; therefore a new referral would be needed before returning to PT. Pt will request therapy at with new physician and is agreeable to DC from PT today.
--- NOTE | 2023-03-15 16:08 | PT.OPDS ---
Current Diagnoses Separation of muscle (nontraumatic), unspecified site (01/17/23) Muscle weakness (generalized) (01/17/23) Other specified disorders of muscle (01/17/23) Fecal urgency (01/17/23) Visit Care Team Role Provider Type Jaja Dixon MD Family Provider Physician Specialty: Gynecology MEAT AND SEAFOOD CLERK Obstetrics Address: [address] [place] [address], [id number] Email: [email or web address] Sophia Willams PA-C Attending Provider Advanced Oxidized Finish Plater Primary Care Provider Referring Provider Specialty: Medical Wound Care Address: [address] [place] [address], [id number] Email: [email or web address] Visit Number Visit Number 08/05 Discharge Summary PT-OP-B Current Condition Start: 11/06/22 19:22 Freq: Status: Active Protocol: Document 11/08/22 11:25 LRN (Rec: 11/08/22 12:23 LRN [id number]) Current Condition History of Current Condition Onset Date 11/2017 Current Complaints Bulging in PF with pushing and bowel movements. History of Current Condition Pt lives on [facility]. Pt states the PF feels out of place and feels like it is bulging when having bowel movement or lifting something heavy since after her 2nd childbirth. Seeing House Detective for her BM problems and will have a colonoscopy 11/12/22. Developmental History Developmental History Two childbirths: 07/2015 and births with episotomy on 2nd . Vaginal delivery. First had 6 hrs of pushing. 2nd had episotomy due to baby heart rate going down. Casing Material Weigher did her first episotomy at that time. Has been doing PT a few weeks on [facility], up until 2.5 weeks ago, for R shoulder/neck /arm pain, but reinjured it a few days ago. Treatment Goals Patient/Caregiver Goals Pt goal is to not want to feel the bulging or worsening of bulging with bowel movements, and eliminate BM issues as much as she can. Personal Factors Other Personal Factors That May Effect Pt lives on [facility] and Therapy/Recovery is financially hindered in therapy visits. Recent onset of R neck/upper back/shoulder pain, history back pain, episiotomy 07/19/2017, cyst removed in same location of episiotomy 2002. PT-OP-C Subjective Start: 11/06/22 19:22 Freq: Status: Active Protocol: Document 01/17/23 10:34 LRN (Rec: 01/17/23 11:16 LRN [id number]) OP-PT Subjective Patient Comments Patient Comments Has been trying to eat more leafy greens and she felt like it didn't do anything for a couple of days, then went on vacation and then lost track. Tried putting self in squatty potty position, but was uneven, so didnt help. PT-OP-I Pelvic Floor Start: 11/06/22 19:22 Freq: Status: Active Protocol: Document 11/08/22 11:25 LRN (Rec: 11/08/22 12:23 LRN [id number]) Pelvic Floor Assessment Bowel Bowel Surgery No Bowel Symptoms Constipation Other Bowel Symptoms Soft stool problem in the past 8 months, difficulty passing stool for years having to use warm water in anal area. Now soft stool discomfort passing and more frequent (3 times at night). Starting with the 1st had problems pushing the stool out, but it wasn't hard stool. Bowel Movement Frequency Several at nighttime Pelvic Clock Pelvic Clock Other Appears to have loose tissue in region of rectum. Prolapse Cystocele Grade 2 SEMG (uV) Baseline 3.1 Quick Contraction 6.7 10 Second Contraction 7.4 Recruitment Pattern Good Relaxation Fair Holding Fair Stability of Hold Fair SEMG Stability of Rest Fair Contraction Ability Voluntary Contraction Moderate Manual Muscle Testing Left 0 Manual Muscle Testing Right 0 Manual Muscle Testing Anterior 3 Manual Muscle Testing Posterior 3 Muscle Endurance (Seconds) 5 Number of Quick Contractions In 10 10 Seconds PT-OP-J Posture/Palpation/Skin Start: 11/06/22 19:22 Freq: Status: Active Protocol: Document 11/08/22 11:25 LRN (Rec: 11/08/22 18:14 LRN [id number]) Posture Evaluation Position Standing T-Spine Posture Flattened L-Spine Posture Increased Lordosis Pelvis Posture Anteriorly Tilted Weight Distribution Balanced Palpation Assessment Location Abdomen-DR Palpation Location Abdomen - DR Palpation Details Above umbilicus: 1-2 above is 1.5 finger widths, 3-4 above is 2.25 finger widths Below umibilicus: 1-2: below is 1.5 finger widths. PT-OP-K Range of Motion Start: 11/06/22 19:22 Freq: Status: Active Protocol: Document 11/08/22 11:25 LRN (Rec: 11/08/22 18:14 LRN [id number]) Lumbar Spine Range of Motion Lumbar Spine Active Degrees Testing Position Standing Flexion 100 Extension 20 Rotation Left 45 Rotation Right 40 Lateral Flexion Left 12 Lateral Flexion Right 12 Hip Goniometric Range of Motion Hip Right Passive Testing Position Supine Internal Rotation 40 External Rotation 75 Left Passive Internal Rotation 35 External Rotation 75 PT-OP-M Strength Start: 11/06/22 19:22 Freq: Status: Active Protocol: Document 11/08/22 11:25 LRN (Rec: 11/08/22 18:14 LRN [id number]) Trunk Strength Trunk Manual Muscle Testing Core Stabilization Pt is not able to maintain core stability with MMT of hip . Hip Strength Hip Manual Muscle Testing Right Flexion (L2) 5 Normal Extension (S1) 5 Normal Abduction 5 Normal Adduction 5 Normal Left Flexion (L2) 5 Normal Extension (S1) 5 Normal Abduction 5 Normal Adduction 5 Normal PT-OP-T Assessment and Plan Start: 11/06/22 19:22 Freq: Status: Active Protocol: Document 03/15/23 15:57 LRN (Rec: 03/15/23 16:08 LRN [id number]) Physical Therapy Assessment Goals Three Impairment Poor core stability Impairment Not able to maintain core stability with MMT of LE's and poor abdominal care of DRSameer Short Term Goal (STG) Pt will be educated in deep core strengthening (TA & obliques) with coordination of proper breath work and improve posture or able to correct increased lordosis on command. STG Duration 01/07/23 (03/15/23: NOT MET GOAL, early discharge) Instructional Design Manager Goal (LTG) Pt will be able to demonstrate a stable core with MMT of hip . LTG Duration 03/08/23 (03/15/23: NOT MET GOAL, early discharge) Two Impairment Bulge feeling in PF Impairment PF Bulge with squat and bowel movements (BMs). Short Term Goal (STG) Pt will understand the role of constipation & intra abdominal pressure changes with transfers/ADLS and body mechanics. 7/25/23: Discussed fluid/ food diet to improve pt understanding of role of constipation has on BM's. STG Duration 01/07/23 (03/15/23: progressed, NOT MET GOAL, early discharge) Intermediate Goal (LTG) Pt will note reduced bulging or worsening of bulging with bowel movements and squatting. LTG Duration 03/08/23 (03/15/23: NOT MET GOAL, early discharge) One Impairment Pt lacks appropriate self care HEP Short Term Goal (STG) Pt will be placed on a self shelter program to progress towards elimination or decrease BM frequency issues ( self abdominal massage). 12/18/22: HEP: Bowel massage, BM training coordinating w/ deep breathing and best positioning (squatty potty), Happy Baby Pose. STG Duration 01/07/23 (03/15/23: progressed, NOT MET GOAL, early discharge) Instructional Design Manager Goal (LTG) Pt will be able to manage symptoms (lower abdominal pain and PF bulge) with an independent HEP of PF strengthening ex's to include core & hip ROM and strengthening. LTG Duration 03/08/23 (03/15/23: NOT MET GOAL, early discharge) Assessment Summary Assessment Pt is a 42 yo female who presented with PF pain and lower abdominal discomfort and increased bowel movements. The pt was seen for eval and 2 treatment visits. She was last seen 01/17/23 and had canceled her 02/18/23 appt. Her plan of care has ; therefore will need a new referral to resume PT. The pt reports being given another referral from a GI specialist; therefore the pt requests DC from current rehab and plans to return later with new referral for bowel dysfunction rehab. Physical Therapy Plan Discharge Physical Therapy Discharge Reasons No Longer Attending PT Discharge Comments Pt reports she has a different /new referral for bowel dysfunction from GI specialist . She feels it is a priority over her current rehab program ; therefore she requests DC from PT. Thank you for your referral.
== END 2023-03-18 14:40 | disposition home or self-care (01) ==
LOC: PHYS 10:30
PROVIDERS: Family Provider Obstetrics & Gynecology; PCP Physician Assistant; Referring Provider Physician Assistant; Visit Provider Physician Assistant
DX: M62.89 Other specified disorders of muscle (principal); M62.00 Separation of muscle (nontraumatic), unspecified site; M62.81 Muscle weakness (generalized); R15.2 Fecal urgency
CPT/HCPCS: 97110; 97162; 97535

== ENCOUNTER → 2023-01-29 11:31 | Outpatient (CLI) | payer OTHER, SELFPAY ==
[2023-01-29 20:50] LABS: Amylase 74 U/L (30-110); Lipase 104 U/L (23-300)
[2023-01-29 20:54] LABS: Add Manual Diff / Slide Review NO; Basophils Absolute Auto 0 /uL (0-100); Basophils Percent Auto 0.7 % (0-2); Eosinophils Absolute Auto 200 /uL (0-450); Eosinophils Percent Auto 2.5 % (2-4); Hematocrit 41.4 % (36-46); Lymphocytes Absolute Auto 1600 /uL (1100-4500); Lymphocytes Percent Auto 25.3 % (25-40); Mean Corpuscular HGB Conc 33.7 % (30-36); Mean Corpuscular Hemoglobin 30.5 PG (26-34); Mean Corpuscular Volume 90.6 fL (80-100); Monocytes Absolute Auto 300 /uL (0-900); Monocytes Percent Auto 4.6 % (3-14); Neutrophils Absolute Auto 4300 /uL (1500-7000); Neutrophils Percent Auto 66.9 % (50-75); Platelet Count 182 X10^3/uL (150-400); Red Blood Cell Count 4.57 X10^6/uL (4.0-5.2); Red Cell Distribution Width 12.6 % (11.6-14.8); White Blood Cell Count 6.4 X10^3/uL (4.5-11.0)
[2023-01-29 21:24] LABS: TSH w/ Reflex to FT4 1.78 uIU/mL (0.47-4.68)
== END ==
PROVIDERS: Family Provider Obstetrics & Gynecology; PCP Physician Assistant; Visit Provider Physician Assistant
DX: K52.9 Noninfective gastroenteritis and colitis, unspecified (principal)
CPT/HCPCS: 82150; 83690; 84443; 85025; 87177

== ENCOUNTER → 2023-03-06 12:00 | Outpatient (CLI) | payer OTHER, SELFPAY | PROVIDERS: Family Provider Obstetrics & Gynecology; PCP Physician Assistant; Visit Provider Physician Assistant | DX: A07.8 Other specified protozoal intestinal diseases (principal); K52.9 Noninfective gastroenteritis and colitis, unspecified; R19.5 Other fecal abnormalities | CPT/HCPCS: 87045; 87177; 87899 ==

== ENCOUNTER → 2023-06-11 14:49 | Outpatient (CLI) | payer OTHER, SELFPAY ==
[2023-06-11 23:46] LABS: Adenovirus F 40/41 Not Detected (Not Detect); Astrovirus Not Detected (Not Detect); Campylobacter Not Detected (Not Detect); Clostridium difficile toxin AB Not Detected (Not Detect); Cryptosporidium Not Detected (Not Detect); Cyclospora cayetanensis Not Detected (Not Detect); Entamoeba histolytica Not Detected (Not Detect); Enteroaggregative E.coli Not Detected (Not Detect); Enteropathogenic E.coli Not Detected (Not Detect); Enterotoxigenic E.coli It/st Not Detected (Not Detect); Giardia lamblia Not Detected (Not Detect); Norovirus GI/GII Not Detected (Not Detect); Plesiomonsa shigelloides Not Detected (Not Detect); Rotavirus A Not Detected (Not Detect); Salmonella Not Detected (Not Detect); Sapovirus Not Detected (Not Detect); Shiga-like toxin-prod E.coli Not Detected (Not Detect); Shigella/Enteroinvasive E.coli Not Detected (Not Detect); Vibrio Not Detected (Not Detect); Vibrio cholerae Not Detected (Not Detect); Yersinia enterocolitica Not Detected (Not Detect)
[2023-06-14 15:42] LABS: H. Pylori Antigen Stool Negative (Negative)
== END ==
PROVIDERS: Physician Assistant; Family Provider Obstetrics & Gynecology; PCP Physician Assistant
DX: R19.7 Diarrhea, unspecified (principal); K59.00 Constipation, unspecified; R10.84 Generalized abdominal pain
CPT/HCPCS: 87177; 87329; 87338; 87507

== ENCOUNTER → 2023-10-29 17:05 | Outpatient (CLI) | payer OTHER, SELFPAY ==
--- NOTE | 2023-10-29 17:06 | DI.MG.S_ITS ---
BILATERAL DIGITAL SCREENING MAMMOGRAM 3D/2D WITH CAD: 10/29/2023 CLINICAL: Routine screening. Comparison is made to exam dated: 10/15/2022 [facility]. Both breasts are extremely dense, which lowers the sensitivity of mammography (category d />75% glandular tissue). Current study was also evaluated with a Computer Aided Detection (CAD) system. No significant masses, calcifications, or other findings are seen in either breast. There has been no significant interval change. IMPRESSION: NEGATIVE There is no mammographic evidence of malignancy. A 1 year screening mammogram is recommended. Based on Tyrer-Cuzick model (a risk assessment model), the patient's lifetime risk is 21.8% and her 10 year risk is 4.2%. If a patient has an elevated risk, a more comprehensive evaluation should be considered and/or a referral to a genetic counselor. The [place] [employer], [employer] [place] [employer], and NCCN Guidelines advise the consideration of Breast MRI as an adjunct to screening mammography in patients whose Lifetime risk to develop breast cancer is 20% or higher. This exam was interpreted at Station ID: [id number]. NOTE: For mammograms, a report in lay terms will be sent to the patient. Approximately 15% of breast malignancies will not be visualized mammographically. In the management of a palpable breast mass, a negative mammogram must not discourage biopsy of a clinically suspicious lesion. Electronically Signed By: Emerson bowens/brodie:10/30/2023 10:14:03 letter sent: Normal Exam ACR BI-RADS Category 1: Negative [id number]
== END ==
PROVIDERS: Family Provider Obstetrics & Gynecology; PCP Physician Assistant; Referring Provider Physician Assistant; Visit Provider Physician Assistant
DX: Z12.31 Encounter for screening mammogram for malignant neoplasm of breast (principal); R92.343 Mammographic extreme density, bilateral breasts
CPT/HCPCS: 77063; 77067

== ENCOUNTER → 2023-10-31 09:35 | Outpatient (CLI) | payer OTHER, SELFPAY ==
[2023-11-07 13:11] LABS: Pancreatic Elastase, Fecal >800 (>200)
== END ==
PROVIDERS: Physician Assistant; Family Provider Obstetrics & Gynecology; PCP Physician Assistant
DX: R19.5 Other fecal abnormalities (principal); R10.84 Generalized abdominal pain; R10.2 Pelvic and perineal pain
CPT/HCPCS: 82656

== ENCOUNTER → 2023-11-05 11:05 | Outpatient (CLI) | payer OTHER, SELFPAY ==
[2023-11-05 19:13] LABS: Add Manual Diff / Slide Review NO; Basophils Absolute Auto 0 /uL (0-100); Basophils Percent Auto 0.4 % (0-2); Eosinophils Absolute Auto 100 /uL (0-450); Eosinophils Percent Auto 2.2 % (2-4); Hematocrit 42.7 % (36-46); Hemoglobin 14.4 g/dL (12.0-16.0); Lymphocytes Absolute Auto 1600 /uL (1100-4500); Lymphocytes Percent Auto 28.2 % (25-40); Mean Corpuscular HGB Conc 33.7 % (30-36); Mean Corpuscular Hemoglobin 30.4 PG (26-34); Mean Corpuscular Volume 90.2 fL (80-100); Monocytes Absolute Auto 300 /uL (0-900); Monocytes Percent Auto 5.9 % (3-14); Neutrophils Absolute Auto 3500 /uL (1500-7000); Neutrophils Percent Auto 63.3 % (50-75); Platelet Count 194 X10^3/uL (150-400); Red Blood Cell Count 4.73 X10^6/uL (4.0-5.2); White Blood Cell Count 5.5 X10^3/uL (4.5-11.0)
[2023-11-05 19:24] LABS: Alanine Aminotransferase 19 IU/L (<35); Albumin 4.6 g/dL (3.5-5.0); Albumin Globulin Ratio 1.7 (1.0-2.8); Alkaline Phosphatase 45 U/L (38-126); Aspartate Aminotransferase 26 IU/L (14-36); BUN Creatinine Ratio 17.9 (6-22); Bilirubin Total 0.9 mg/dL (0.2-1.3); Blood Urea Nitrogen 12 mg/dL (7-17); Calcium 9.1 mg/dL (8.4-10.2); Carbon Dioxide 26 mmol/L (22-32); Chloride 106 mmol/L (98-107); Estimated Glomerular Filt Rate > 60 mL/min (>60); Globulin 2.7 g/dL (1.7-4.1); Glucose 101 mg/dL (70-100); HEMOLYSIS < 15 (0-50); Lipase 118 U/L (23-300); Potassium 4.1 mmol/L (3.4-5.1); Sodium 139 mmol/L (137-145); Total Protein 7.3 g/dL (6.3-8.2)
[2023-11-05 19:53] LABS: Ferritin 32 ng/mL (6-137)
[2023-11-12 16:12] LABS: 25 hydroxy Vitamin D 2 <1.0 ng/mL (.); 25 hydroxy Vitamin D3 18 ng/mL (.)
== END ==
PROVIDERS: Physician Assistant; Family Provider Obstetrics & Gynecology; PCP Physician Assistant
DX: R19.5 Other fecal abnormalities (principal); R10.84 Generalized abdominal pain; R10.2 Pelvic and perineal pain
CPT/HCPCS: 80053; 82306; 82728; 83690; 84443; 85025

== ENCOUNTER → 2023-11-07 12:43 | Outpatient (CLI) | payer OTHER, SELFPAY ==
--- NOTE | 2023-11-07 12:44 | DI.US.S_ITS ---
PROCEDURE: US ABDOMEN COMPLETE INDICATIONS: Generalized abdominal pain Pelvic pain TECHNIQUE: Real-time scanning was performed of the abdominal and retroperitoneal organs, with image documentation. COMPARISON: None. FINDINGS: Liver: Liver is normal in size and homogeneous in echotexture. Gallbladder: There is a 0.4 x 0.3 x 0.5 cm gallbladder polyp. No gallstone. No wall thickening. Negative sonographic Davis sign. Biliary ducts: Intrahepatic bile ducts are non-dilated. Extrahepatic bile duct caliber measures 2 mm. Normal is 6-7 mm or less in diameter, or 10 mm or less post-cholecystectomy. Pancreas: Visualized portions of the pancreas are sonographically normal. Spleen: Spleen is normal in size and homogeneous in echotexture. There is a hypoechoic lesion within the spleen measuring 0.7 x 0.9 x 0.8 cm. There are internal echoes. Kidneys: Kidneys are normal in size and echotexture. Right kidney measures 12.9 cm long; left kidney measures 10.2 cm long. No hydronephrosis or nephrolithiasis. No solid masses. Aorta: Visualized aorta is normal in caliber at less than 3 cm. Iliacs: Proximal common iliac arteries are normal in caliber at less than 2.5 cm. IVC: Intrahepatic inferior vena cava is patent. Miscellaneous: No free abdominal fluid. IMPRESSION: There is a 0.9 cm hypoechoic focus within the spleen possibly representing a cyst versus possible splenic abscess. Consider further evaluation with contrast enhanced CT of the abdomen. Incidental note of a 0.5 cm gallbladder polyp. No follow-up. imaging required Dictated by: Piyush Jones M.D. on 11/07/2023 at 18:43 Approved by: Piyush Jones M.D. on 11/07/2023 at 18:46
== END ==
PROVIDERS: Family Provider Obstetrics & Gynecology; PCP Physician Assistant; Referring Provider Physician Assistant; Visit Provider Physician Assistant
DX: K82.4 Cholesterolosis of gallbladder (principal); R19.15 Other abnormal bowel sounds; R10.84 Generalized abdominal pain; R10.2 Pelvic and perineal pain
CPT/HCPCS: 76700

== ENCOUNTER → 2024-04-28 12:00 | Outpatient (CLI) | payer BC, SELFPAY ==
[2024-04-28 19:02] LABS: Alanine Aminotransferase 27 IU/L (<35); Albumin 4.6 g/dL (3.5-5.0); Albumin Globulin Ratio 1.6 (1.0-2.8); Alkaline Phosphatase 45 U/L (38-126); Aspartate Aminotransferase 32 IU/L (14-36); BUN Creatinine Ratio 22.6 (6-22); Bilirubin Total 0.7 mg/dL (0.2-1.3); Blood Urea Nitrogen 14 mg/dL (7-17); Calcium 9.6 mg/dL (8.4-10.2); Carbon Dioxide 27 mmol/L (22-32); Chloride 102 mmol/L (98-107); Estimated Glomerular Filt Rate > 60 mL/min (>60); Globulin 2.9 g/dL (1.7-4.1); Glucose 84 mg/dL (70-100); HEMOLYSIS < 15 (0-50); Potassium 4.2 mmol/L (3.4-5.1); Sodium 135 mmol/L (137-145); Total Protein 7.5 g/dL (6.3-8.2)
[2024-04-28 19:29] LABS: TSH w/ Reflex to FT4 2.75 uIU/mL (0.47-4.68)
== END ==
PROVIDERS: Family Provider Obstetrics & Gynecology; PCP Physician Assistant; Visit Provider Physician Assistant
DX: R00.2 Palpitations (principal)
CPT/HCPCS: 80053; 84443

== ENCOUNTER → 2024-10-05 09:08 | Outpatient (CLI) | payer BC, SELFPAY ==
[2024-10-05 18:51] LABS: Add Manual Diff / Slide Review NO; Basophils Absolute Auto 0 /uL (0-100); Basophils Percent Auto 0.8 % (0-2); Eosinophils Absolute Auto 200 /uL (0-450); Eosinophils Percent Auto 3.2 % (2-4); Hematocrit 41.7 % (36-46); Hemoglobin 14.3 g/dL (12.0-16.0); Lymphocytes Absolute Auto 1500 /uL (1100-4500); Lymphocytes Percent Auto 30.6 % (25-40); Mean Corpuscular HGB Conc 34.3 % (30-36); Mean Corpuscular Hemoglobin 30.9 PG (26-34); Monocytes Absolute Auto 300 /uL (0-900); Monocytes Percent Auto 5.8 % (3-14); Neutrophils Absolute Auto 2800 /uL (1500-7000); Neutrophils Percent Auto 59.6 % (50-75); Platelet Count 207 X10^3/uL (150-400); Red Blood Cell Count 4.63 X10^6/uL (4.0-5.2); Red Cell Distribution Width 12.6 % (11.6-14.8); White Blood Cell Count 4.8 X10^3/uL (4.5-11.0)
[2024-10-05 19:16] LABS: Follicle Stimulating Hormone 7.63 mIU/mL
[2024-10-05 19:32] LABS: Estradiol, Total 42.1 pg/mL
[2024-10-09 23:08] LABS: Anti Mullerian Hormone 0.752 ng/mL (.)
== END ==
PROVIDERS: Family Provider Obstetrics & Gynecology; PCP Physician Assistant; Referring Provider Nurse Practitioner Adult Health; Visit Provider Nurse Practitioner Adult Health
DX: N92.6 Irregular menstruation, unspecified (principal)
CPT/HCPCS: 82397; 82670; 83001; 85025

== ENCOUNTER → 2024-10-29 11:41 | Outpatient (CLI) | payer BC, SELFPAY ==
--- NOTE | 2024-10-29 11:43 | DI.US.S_ITS ---
PROCEDURE: US PELVIC COMPLETE INDICATIONS: extended uterine bleeding w/regular menses,assess for polyp/ TECHNIQUE: Real-time scanning was performed of the pelvic organs, with image documentation. Additional endovaginal scanning was necessary due to incomplete visualization of the adnexal and endometrial structures by transabdominal scanning. COMPARISON: [facility], , PELVIC COMPLETE, 11/10/2014, 11:25. FINDINGS: Uterus: Uterus is anteverted and normal in size at 8.8 x 6.1 x 5.4 cm. The myometrium is homogeneous. The endometrium measures 8.9 mm combined thickness. Right posterior subserosal fibroid 1.4 x 1.5 x 0.7 cm. Midline posterior intramural fibroid 0.7 x 0.7 x 0.4 cm. Left posterior intramural fibroid 1.4 x 1.2 x 1.1 cm. Ovaries: The right ovary measures 2.6 x 1.4 x 1.7 cm, with a calculated ovarian volume of 3.3 cc. The left ovary measures 3.6 x 1.8 x 1.6 cm, with a calculated ovarian volume of 5.4 cc. The ovaries have a normal sonographic appearance. Less than 12 follicles can be seen in each ovary. No adnexal masses are seen. Other: No pathologic free abdominal or pelvic fluid. IMPRESSION: Uterine fibroids Approved by: Fracisco Yoo M.D. on 10/30/2024 at 16:07
--- NOTE | 2024-10-29 11:43 | DI.MG.S_ITS ---
MM screening mammo BI: 10/29/2024. BI-RADS: 1 CLINICAL: 44-year old female for bilateral screening mammogram. Tyrer-Cuzick lifetime risk of 11.5%. No personal or first-degree family history of breast cancer. PRIOR EXAMS 10/29/2023, 10/15/2022. MAMMOGRAPHY TECHNIQUE: 2D and 3D (tomosynthesis) digital mammographic views obtained, with additional images as needed for full coverage. Current study was also evaluated with a Computer Aided Detection (CAD) system. DENSITY C. The breasts are heterogeneously dense, which may obscure small masses. MAMMOGRAPHY FINDINGS Bilateral: No suspicious mass, asymmetry, microcalcification, or other abnormality seen. IMPRESSION: * No evidence of malignancy. RECOMMENDATIONS Bilateral * Annual screening mammography. OVERALL ASSESSMENT CATEGORY BI-RADS-1: Negative. The [employer] [place] [employer] recommends annual screening mammography beginning at age 40 for women with average risk of breast cancer. ELECTRONICALLY SIGNED: Karlee Moulton M.D. on 10/31/2024 at 12:59:44 AM PT Interpreting Station ID: [id number]
== END ==
PROVIDERS: Family Provider Obstetrics & Gynecology; PCP Physician Assistant; Referring Provider Nurse Practitioner Adult Health; Visit Provider Nurse Practitioner Adult Health
DX: Z12.31 Encounter for screening mammogram for malignant neoplasm of breast (principal); R92.333 Mammographic heterogeneous density, bilateral breasts; N92.6 Irregular menstruation, unspecified; D25.1 Intramural leiomyoma of uterus; D25.2 Subserosal leiomyoma of uterus
CPT/HCPCS: 76830; 76856; 77063; 77067

== ENCOUNTER → 2024-11-11 14:14 | Outpatient (CLI) | payer BC, SELFPAY | PROVIDERS: Physician Assistant; PCP Physician Assistant | DX: R14.0 Abdominal distension (gaseous) (principal); K20.80 Other esophagitis without bleeding; K57.90 Diverticulosis of intestine, part unspecified, without perforation or abscess without bleeding; M62.89 Other specified disorders of muscle; K30 Functional dyspepsia; K64.8 Other hemorrhoids | CPT/HCPCS: 86003 ==

== ENCOUNTER → 2024-11-12 14:10 | Outpatient (CLI) | payer BC, SELFPAY ==
--- NOTE | 2024-11-12 14:11 | DI.US.S_ITS ---
PROCEDURE: US HERNIA INDICATIONS: abdominal wall bulge TECHNIQUE: Real-time focused scanning was performed of the abdomen, with image documentation. COMPARISON: None. FINDINGS: No suspicious cyst or solid mass in the abdominal wall area of concern. No fascial defects identified. Large quantity of colonic stool seen immediately deep to the abdominal wall. IMPRESSION: No evidence of abdominal wall hernia on this exam. No abnormal subcutaneous cyst or solid mass. Dictated by: Orly Evangelista M.D. on 11/13/2024 at 13:54 Approved by: Orly Evangelista M.D. on 11/13/2024 at 13:55
== END ==
PROVIDERS: PCP Physician Assistant; Referring Provider Physician Assistant; Visit Provider Physician Assistant
DX: R19.04 Left lower quadrant abdominal swelling, mass and lump (principal)
CPT/HCPCS: 76705

== ENCOUNTER → 2024-11-21 12:18 | Outpatient (CLI) | payer BC, SELFPAY ==
--- NOTE | 2024-11-21 12:19 | DI.CT.S_ITS ---
PROCEDURE: CT ABDOMEN PELVIS W CON INDICATIONS: abdominal wall bulge TECHNIQUE: After the administration of intravenous contrast, axial sections acquired from the lung bases to the pubic symphysis. Coronal and sagittal reformats were performed. For radiation dose reduction, the following was used: automated exposure control, adjustment of mA and/or kV according to patient size. COMPARISON: None. FINDINGS: Image quality: Diagnostic. Lower Chest: No significant findings. ABDOMEN: Liver: No solid mass. Mild diffuse hepatic steatosis. Gallbladder: No radiopaque gallstones or wall thickening. Biliary ducts: No biliary dilation. Pancreas: No ductal dilation. Spleen: Size is within normal limits. There are a few small subcentimeter splenic hypodensities which are incompletely characterized but likely represent cysts versus hemangiomas. Adrenal Glands: No adrenal nodules. Kidneys and Ureters: No hydronephrosis. No solid mass. No complex renal cystic lesion which requires follow up. Bilateral ureters are normal in course and caliber. Stomach and Bowel: Normal colonic caliber, without significant wall thickening. No evidence for small bowel obstruction or associated inflammatory changes. The appendix is not definitively visualized. However, no secondary findings of acute inflammation are noted in the right lower quadrant. Peritoneum: No abnormal intraperitoneal fluid. No free air. Ventral Wall: There is a fat-containing umbilical hernia without acute inflammation. No other ventral hernias are identified. No focal mass lesions are noted in the subcutaneous tissues of the anterior abdominal wall. Abdominal Nodes: No retroperitoneal or mesenteric adenopathy by size criteria. Vessels: Aorta and inferior vena cava are normal in size. PELVIS: Pelvic Organs: Heterogeneous, mildly lobulated uterine contour likely representing multi fibroid uterus. Bladder: No bladder wall thickening, accounting for underdistention. Pelvic Nodes: No enlarged lymph nodes. Miscellaneous: No inguinal hernias are seen. Bones: No aggressive osseous abnormality. Visualized osseous structures appear intact without acute fracture or focal destructive lesion. No acute compression fractures of the imaged spine. Lower lumbar spondylosis most pronounced at L5-S1. IMPRESSION: CT abdomen and pelvis without acute abnormalities. There is a small fat containing umbilical hernia without acute inflammation. Otherwise, no other ventral hernias identified. No abdominal wall defects or soft tissue lesions in the anterior abdominal wall. Other chronic/nonacute findings as above. Dictated by: Piyush Jones M.D. on 11/21/2024 at 21:15 Approved by: Piyush Jones M.D. on 11/21/2024 at 21:52
== END ==
PROVIDERS: PCP Physician Assistant; Referring Provider Physician Assistant; Visit Provider Physician Assistant
DX: K42.9 Umbilical hernia without obstruction or gangrene (principal); K57.90 Diverticulosis of intestine, part unspecified, without perforation or abscess without bleeding; K76.0 Fatty (change of) liver, not elsewhere classified; R19.00 Intra-abdominal and pelvic swelling, mass and lump, unspecified site; R14.0 Abdominal distension (gaseous); K20.80 Other esophagitis without bleeding; K30 Functional dyspepsia; M62.89 Other specified disorders of muscle; K64.8 Other hemorrhoids; M47.816 Spondylosis without myelopathy or radiculopathy, lumbar region; M47.817 Spondylosis without myelopathy or radiculopathy, lumbosacral region
CPT/HCPCS: 74177; Q9967